=== PATIENT | female | born 1975 | race Caucasian/White ===

== ENCOUNTER 2017-04-23 21:25 | Observation (INO) | payer MEDICAID ==
[~2017-04-23] VITALS: Ht 162.6 cm; Wt 120.4 kg
[2017-04-23 22:45] VITALS: BP 113/69; PULSE 65; RESP 18; TEMP 97.9; O2SAT 95
[2017-04-23 23:06] VITALS: PULSE 71
[2017-04-24 04:15] VITALS: PULSE 71
[2017-04-24 04:31] VITALS: BP 104/52; PULSE 70; RESP 16; TEMP 97.8; O2SAT 97
[2017-04-24 04:43] VITALS: PULSE 62
[2017-04-24] MEDS ORDERED: ACETAMINOPHEN 500 MG CPLT PO PRN (07:45)
[2017-04-24] MEDS ORDERED: SODIUM CHLORIDE 0.9% FLUSH 10 ML FLUSH IV FLUSH PRN (07:45)
[2017-04-24] MEDS ORDERED: NITROGLYCERIN 0.4 MG SL 25 TABS/BTL SL PRN (07:45)
[2017-04-24] MEDS ORDERED: ONDANSETRON HCL 4 MG/2 ML VIAL IV PUSH PRN (07:45)
[2017-04-24 08:04] VITALS: BP 122/63; PULSE 64; RESP 17; TEMP 97.9; O2SAT 100
--- NOTE | 2017-04-24 08:15 | HHI.HP ---
HPI Primary Care Physician No Primary Care Physician Chief Complaint Chest pain History of Present Illness 41-year-old female with history of smoking presents to emergency room for further evaluation of chest pain. Onset Saturday evening on 5 PM. Location substernal. Described as a stabbing pain and heaviness. Duration constant, stating she went to sleep with pain and upon awakening pain persisted. No radiation of pain. No associated symptoms of nausea, vomiting, dyspnea, or diaphoresis. No known precipitating or relieving factors. Denies similar pain in the past. Currently his chest pain-free. Review of Systems General: No fatigue,weakness, fever, chills, or recent illness change in appetite. Has been in her general state of health. HEENT: No RAM, no vision changes, no nasal congestion or drainage, no dysphasia. CV: As stated above. No current chest pain or pressure. RESP: No SOB, cough, wheeze, or recent URI. GI: No nausea, vomiting, bowel changes, diarrhea, constipation, pain, distention , melena, or blood in the stool. No change in appetite, no unintentional weight gain or weight loss. : No dysuria, urgency, frequency EXT: No lower leg edema, no paraesthesias MS: No discomfort or change in ROM, no injury or recent traumas NEURO: No dizziness, difficulty with balance, LOC, motor/sensory deficits PSYCH: No anxiety, depression SKIN: No rashes, no concerning lesions Past Family Social History Allergies: Coded Allergies: No Known Allergies (Unverified Allergy, Unknown, 04/24/17) Past Medical History None Past Surgical History Tubal ligation, cholecystectomy, discectomy x2 Reported Medications Reported Meds & Active Scripts Active No Active Prescriptions or Reported Medications Active Ordered Medications Current Medications Medications (Trade) Dose Ordered Sig/Alex Route Start Time Stop Time Status Last Admin (NS Flush) 2 ml UNSCH PRN IV FLUSH 04/24/17 07:45 (NS Flush) 2 ml BID IV FLUSH 04/24/17 09:00 (Tylenol) 500 mg Q4H PRN PO 04/24/17 07:45 (Zofran Inj) 4 mg Q6H PRN IV PUSH 04/24/17 07:45 (Nitrostat Sl) 0.4 mg Q5M PRN SL 04/24/17 07:45 (Aspirin) 325 mg DAILY PO 04/24/17 09:00 Family History Father myocardial infraction in his mid 40s. Social History No known diabetes, hypertension, or hyperlipidemia. Former smoker 18 pack year history. Quit smoking 1 month ago. Denies any alcohol or illegal drug use. Endorses sedentary lifestyle she relates to past lumbar surgeries. Past cardiac testing None Physical Exam Vital Signs Vital Signs Date Time Temp Pulse Resp B/P (MAP) Pulse Ox O2 Delivery O2 Flow Rate FiO2 04/24/17 08:04 97.9 64 17 122/63 (82) 100 04/24/17 04:31 97.8 70 16 104/52 (69) 97 04/24/17 04:15 71 04/23/17 23:06 71 04/23/17 22:45 97.9 65 18 113/69 (84) 95 Physical Exam GENERAL: Alert WN, WD, NAD, pleasant, morbidly obese female HEAD: NC, AT EYES: Sclera clear, conjunctiva without injection ENT: Mucous membranes pink and moist NECK: Supple, no masses, trachea midline CV: RRR, without murmur, rub, gallop, no JVD, S1-S2 no S3-S4. chest wall not reproducible with palpation. RESP: Clear lungs throughout bilateral, no crackles, wheeze, rhonchi, symmetrical chest rise, nonlabored, able to speak in full sentences ABD: Soft, NT, ND, no masses, positive bowel tones EXT: Pulses +24, trace bilateral lower dependent edema MS: Normal tone 4 extremities, no obvious deformities, full range of motion NEURO: CN II through CN XII grossly intact, motor strength 5/5 PSYCH: A+O 3, pleasant affect, appropriate speech, mood, insight and judgment. SKIN: Normal turgor, normal texture, no lesions, no rashes Laboratory CBC and CMP unremarkable. HCG less than 1. Troponins 3 negative. Laboratory Tests Test 04/24/17 00:00 Troponin I LESS THAN 0.02 Imaging Chest xray completed in [place], ER read by radiologist as a normal examination. Course EKG NSR, normal axis, no st t segment changes Caprini VTE Risk Assessment Caprini VTE Risk Assessment: No/Low Risk (score <= 1) Caprini Risk Assessment Model Point Value = 1 Point Value = 2 Point Value = 3 Point Value = 5 Age 41-60 Minor surgery BMI > 25 kg/m2 Swollen legs Varicose veins or History of unexplained or recurrent spontaneous Oral contraceptives or hormone replacement Sepsis (< 1 month) Serious lung disease, including pneumonia (< 1 month) Abnormal pulmonary function Acute myocardial infarction Congestive heart failure (< 1 month) History of inflammatory bowel disease Medical patient at bed rest Age 61-74 Arthroscopic surgery Major open surgery (> 45 min) Laparoscopic surgery (> 45 min) Malignancy Confined to bed (> 72 hours) Immobilizing plaster cast Central venous access Age >= 75 History of VTE Family history of VTE Factor V Leiden Prothrombin [id number] Lupus anticoagulant Anticardiolipin antibodies Elevated serum homocysteine Heparin-induced thrombocytopenia Other congenital or acquired thrombophilia Stroke (< 1 month) Elective arthroplasty Hip, pelvis, or leg fracture Acute spinal cord injury (< 1 month) Prophylaxis Regimen Total Risk Factor Score Risk Level Prophylaxis Regimen 0-1 Low Early ambulation 2 Moderate Order ONE of the following: *Sequential Compression Device (SCD) *Heparin 5000 units SQ BID 3-4 Higher Order ONE of the following medications: *Heparin 5000 units SQ TID *Enoxaparin/Lovenox 40 mg SQ daily (WT < 150 kg, CrCl > 30 mL/min) *Enoxaparin/Lovenox 30 mg SQ daily (WT < 150 kg, CrCl > 10-29 mL/min) *Enoxaparin/Lovenox 30 mg SQ BID (WT < 150 kg, CrCl > 30 mL/min) AND/OR *Sequential Compression Device (SCD) 5 or more Highest Order ONE of the following medications: *Heparin 5000 units SQ TID (Preferred with Epidurals) *Enoxaparin/Lovenox 40 mg SQ daily (WT < 150 kg, CrCl > 30 mL/min) *Enoxaparin/Lovenox 30 mg SQ daily (WT < 150 kg, CrCl > 10-29 mL/min) *Enoxaparin/Lovenox 30 mg SQ BID (WT < 150 kg, CrCl > 30 mL/min) AND *Sequential Compression Device (SCD) Assessment and Plan Assessment and Plan #1 Atypical chest pain-admitted to chest pain center. Ruled out with 3 sets of EKGs, cardiac enzymes, and monitored overnight. Seen and evaluated by Dr. Nasim Garcia. Proceed with Lexiscan. Unremarkable, plan to discharge with follow-up with PCP. Patient will plan of care. Encouraged to increase daily activity, weight loss, and continue with tobacco cessation. Shama Dalal Apr 24, 2017 08:15
[2017-04-24] MEDS ORDERED: SODIUM CHLORIDE 0.9% FLUSH 10 ML FLUSH IV FLUSH SCH (09:00)
[2017-04-24] MEDS ORDERED: ASPIRIN 325 MG TAB PO SCH (09:00)
--- NOTE | 2017-04-24 09:43 | EKG ---
Date Performed: 04/23/2017 Time Performed: 23:45:08 PTAGE: 41 years EKG: Sinus rhythm NORMAL ECG WARNING: DATA QUALITY MAY AFFECT INTERPRETATION PREVIOUS TRACING : 04/23/2017 17.11 Since previous tracing, no significant change noted DOCTOR: Nasim Garcia Interpretating Date/Time 04/24/2017 09:41:35
[2017-04-24] MEDS ORDERED: REGADENOSON INJ 0.4 MG/5 ML SYR ONE (09:57)
--- NOTE | 2017-04-24 11:19 | RADRPT ---
EXAM DATE/TIME: 04/24/2017 09:07 [facility] COMPARISON: No previous studies available for comparison. INDICATIONS : Left sided chest pain. Angina. DOSE: 11.0 mCi Tc99m Myoview at stress. 35.0 mCi Tc99m Myoview at rest. 0.4 mg Lexiscan STRESS SYMPTOMS: Nausea and tired. EJECTION FRACTION: 53% MEDICAL HISTORY : None SURGICAL HISTORY : Tubal ligation. Cholecystectomy. Right shoulder surgery. ENCOUNTER: Initial ACUITY: 2 days PAIN SCALE: 3/10 LOCATION: Left chest TECHNIQUE: The patient underwent pharmacologic stress with infusion of prescribed dose. Continuous ECG tracing was monitored during stress. Gated SPECT imaging was performed after stress and conventional SPECT i maging was performed at rest. The examination was performed on a SPECT/CT scanner, both attenuation and non-corrected datasets were reviewed. FINDINGS: DISTRIBUTION: The maximum perfused segment at stress is in the anterior wall followed by the inferior wall. wall. PERFUSION STUDY: Perfusion is better at stress than rest. GATED STUDY: There is intact wall motion and thickening without hypokinetic or dyskinetic segments. CONCLUSION: Negative for stress-induced ischemia. RISK CATEGORY: Low (<1% Annual Mortality Rate) Jonnathan Jesus MD FACR on April 24, 2017 at 11:16 Board Certified Radiologist. This report was verified electronically.
--- NOTE | 2017-04-24 11:37 | HHI.DCPOC ---
Discharge Care Plan Diagnosis: (1) Atypical chest pain Goals to Promote Your Health * To prevent worsening of your condition and complications * To maintain your health at the optimal level Directions to Meet Your Goals Take your medications as prescribed Follow your dietary instruction Follow activity as directed Keep your appointments as scheduled Take your immunizations and boosters as scheduled If your symptoms worsen call your PCP, if no PCP go to Urgent Care Center or Emergency Room Smoking is Dangerous to Your Health. Avoid second hand smoke Call the 24-hour hour crisis hotline for domestic abuse at Shama Dalal Apr 24, 2017 11:37
--- NOTE | 2017-04-25 13:14 | TR ---
Date Performed: 04/24/2017 Time Performed: 10:01:15 DOCTOR: Cristobal Fam DRUG LIST: CLINICAL HISTORY: REASON FOR TEST: REASON FOR ENDING: OBSERVATION: CONCLUSION: Lexiscan stress test was performed under standard four minute protocol. Radionuclid e was injected one minute prior to ending the test. No electrocardiographic abormalities were present to suggest ischemia. Nuclear imaging and interpretation are pending. COMMENTS:
== END 2017-04-24 14:46 | disposition home or self-care (01) ==
LOC: NEDDLT 21:25 → NEPFCDU 21:35
PROVIDERS: ADMIT Internal Medicine Interventional Cardiology; ATTEND Internal Medicine Interventional Cardiology
DX: R07.89 Other chest pain (principal); I20.9 Angina pectoris, unspecified; Z87.891 Personal history of nicotine dependence
CPT/HCPCS: 71010; 78452; 80053; 82550; 82552; 83735; 84484; 84702; 85025; 85610; 85730; 93005; 93017; 99285; A9502; G0378; J2785